=== PATIENT | male | born 1980 | race Hispanic/Latino ===

== ENCOUNTER 2021-02-14 01:55 | Emergency (ER) | payer SELFPAY ==
[~2021-02-14] VITALS: Ht 165.1 cm; Wt 86.2 kg
[2021-02-14 02:12] VITALS: BP 157/94
[2021-02-14] MEDS ORDERED: CEFTRIAXONE 1G VIAL IM ONE (02:30)
[2021-02-14] MEDS ORDERED: KETOROLAC 60 MG VIAL (30MG/ML) IM ONE (02:30)
[2021-02-14] MEDS ORDERED: HYDROCODONE/ACETAMINOPHEN 5/325 MG TAB PO ONE (02:30)
[2021-02-14] MEDS ORDERED: ACETAMINOPHEN 500 MG TABLET PO ONE (02:30)
[2021-02-14] MEDS ORDERED: CLINDAMYCIN 150 MG CAP PO ONE (02:30)
[2021-02-14] MEDS ORDERED: CLIN-141 PO (02:31)
[2021-02-14] MEDS ORDERED: CEPH500B PO (02:31)
[2021-02-14] MEDS ORDERED: MELO7.5T12 PO (02:31)
[2021-02-14] MEDS ORDERED: CLINDAMYCIN 150 MG CAP ONE (02:33)
[2021-02-14] MEDS ORDERED: HYDROCODONE/ACETAMINOPHEN 5/325 MG TAB ONE (02:34)
[2021-02-14] MEDS ORDERED: CEFTRIAXONE 1G VIAL ONE (02:34)
[2021-02-14] MEDS ORDERED: KETOROLAC 60 MG VIAL (30MG/ML) ONE (02:34)
[2021-02-14] MEDS ORDERED: ACETAMINOPHEN 500 MG TABLET ONE (02:34)
== END 2021-02-14 02:50 | disposition home or self-care (01) ==
LOC: EDH 01:55
DX: S60.465A Insect bite (nonvenomous) of left ring finger, initial encounter (principal); L03.012 Cellulitis of left finger; Z79.1 Long term (current) use of non-steroidal anti-inflammatories (NSAID); W57.XXXA Bitten or stung by nonvenomous insect and other nonvenomous arthropods, initial encounter
CPT/HCPCS: 96372 ×2; 99284; J0696; J1885